=== PATIENT | female | born 1980 | race Caucasian/White ===

== ENCOUNTER 2022-07-31 11:36 | Emergency (ER) | payer SELFPAY ==
[~2022-07-31] VITALS: Ht 157.5 cm; Wt 100.0 kg
[2022-07-31 11:46] VITALS: BP 121/74
== END 2022-07-31 16:45 | disposition left against medical advice (07) ==
LOC: ER 11:36
DX: Z53.21 Procedure and treatment not carried out due to patient leaving prior to being seen by health care provider (principal)
CPT/HCPCS: 93005